=== PATIENT | male | born 1975 | race Caucasian/White ===

== ENCOUNTER 2017-02-10 00:28 | Inpatient (IN) | payer OTHER ==
[~2017-02-10] VITALS: Ht 182.9 cm; Wt 142.9 kg
[2017-02-10] VITALS (8 sets, daily range): BP systolic 127–184; BP diastolic 57–104
--- NOTE | ~2017-02-10 | O ---
[facility] [place] [address] OPERATIVE REPORT Name: SOTERO CARR WILLIAM Room #: 419-P ADM IN M.R.#: [id number] Admission: 02/10/17 Attend Phys: Emile Rojas MD Discharge: Date of : 71 Report #: [id number] THIS REPORT FOR: //name// CC: [facility] physician/PCP Kellie Wilks DATE OF SERVICE: 02/10/2017 PREOPERATIVE DIAGNOSIS: Left large scrotal abscess. POSTOPERATIVE DIAGNOSIS: Left large scrotal abscess. SURGEON: Elie Wilks MD DINING CAR WAITER/WAITRESS: None. ANESTHESIA: General. FLUIDS: Please see anesthesia notes. BLOOD LOSS: 10 mL. COMPLICATIONS: None. POSTPROCEDURE STATUS: Stable. SPECIMEN: 1. Abscess culture. 2. Necrotic skin. SURGERIES: 1. Scrotal exploration with incision and drainage of a large scrotal abscess. 2. Debridement of gangrenous tissue. 3. Arriola catheter placement. FINDINGS: 1. The patient had a large, greater than 10 cm multiloculated in a left-sided scrotal abscess with a large amount of induration as well as gangrenous type tissue. 2. No obvious testicular involvement or urethral involvement. OPERATITE NOTE IN DETAIL: After informed consent, the patient was brought to the operating room, was placed in supine position. He was prepped and draped in sterile fashion, was given general endotracheal anesthesia as well as preoperative antibiotics. Arriola catheter was placed sterilely on the field. [facility] [address] [place] [address] OPERATIVE REPORT Name: SOTERO CARR WILLIAM Room #: 419-P [facility] IN M.R.#: [id number] Admission: 02/10/17 Attend Phys: Emile Rojas MD Discharge: Date of : 71 Report #: [id number] The bladder was drained, yellow urine was noted with no difficulty placing the Arriola catheter. Under exam, there were no obvious signs of infection involving the urethra or suprapubic area. On exam, the patient is already draining large left-sided scrotal abscess, on CT scan he had quite a large amount of air. He is a poorly controlled diabetic with a blood sugar of over 600 upon admission at [facility], he was taken to the operating room emergently for drainage. An incision was made from the top of the scrotum down to the left side, almost to the perineal region. There is a mild amount of necrotic skin over the scrotum that was excised and removed. Immediately upon entering the scrotal cavity, a large amount of pus and infection was removed. Cultures were taken. Debridement was performed extensively. No obvious sign of involvement of the testicle was noted. Once all debridement was noted, we got back tissue that bled appropriately. We elected to place a [place] drain in the dependent portion down through the perineum. This was sewn in place with a 2-0 suture. Once the Teresa was securely in place, we then packed with wet to dry dressings, impregnated with some Betadine. The patient was then awoken and transferred to recovery room in stable condition. All counts were correct. There were no complications. The patient tolerated the procedure well. <ELECTRONICALLY SIGNED> By: Elie Wliks MD 02/10/17 1135 [id number] 1017 Elie Wilks MD /nt
--- NOTE | ~2017-02-10 | HC ---
[facility] [place] [address] CONSULTATION Name: SOTERO CARR Room #: 419-P ADM IN M.R.#: [id number] Admission: 02/10/17 Attend Phys: Emile Rojas MD Discharge: Date of : 71 Report #: [id number] THIS REPORT FOR: //name// CC: [facility] physician/PCP Emile Wilks DATE OF SERVICE: 02/11/2017 PERSONAL PHYSICIAN: Dr. Rojas. CHIEF COMPLAINT: Scrotal wound, status post I and D of scrotal abscess. HISTORY OF PRESENT ILLNESS: This is a 41-year-old white male who had approximately 5-day history of a boil on his left scrotal region that became progressively more tender and enlarged which prompted him to come to the emergency department for evaluation and the patient was taken to the operating room and had I and D of the scrotal abscess. The patient now has surgical packing within the wound itself. We have been asked to assist in the care of this patient. The patient denies fevers, chills. The patient states that the pain is much improved now status post surgery, but is gray tender to touch. PAST MEDICAL HISTORY: Significant for diabetes, which is poorly controlled. The patient states he has not taken any insulin for approximately 4 years since he has lost his insurance. History of MRSA diskitis approximately several years ago. Chronic kidney disease and hypertension, both of which also untreated. PAST SURGICAL HISTORY: Significant for cholecystectomy in 2010. DRUG ALLERGIES: DAPTOMYCIN. CURRENT MEDICATIONS: Include minocycline, clonidine, aspirin, insulin, amlodipine. The only one he has actively taken was minocycline. SOCIAL HISTORY: The patient does not smoke or drink alcohol, works as a assistant director of security. FAMILY HISTORY: Not pertinent to current medical condition. REVIEW OF SYSTEMS: CONSTITUTIONAL: The patient denies fevers or chills. NEUROLOGIC: The patient has overall generalized weakness, but no isolated weakness in arms or legs. EYES: No complaints. ENT: No complaints. CARDIAC: The patient denies chest pain, palpitations, peripheral edema. [facility] [address] [address] CONSULTATION Name: SOTERO CARR [place] Room #: 419-P [facility] IN M.R.#: [id number] Admission: 02/10/17 Attend Phys: Emile Rojas MD Discharge: Date of : 71 Report #: [id number] RESPIRATORY: The patient denies shortness of breath, cough, wheezes. GASTROINTESTINAL: The patient denies nausea, vomiting, abdominal pain. GENITOURINARY: The patient complains of pain in his left scrotal region where surgical wound is located. MUSCULOSKELETAL: No complaints. SKIN: There is a surgical wound to the left scrotum. PHYSICAL EXAMINATION: VITAL SIGNS: Stable. The patient is afebrile. GENERAL: He is alert and oriented x 3, obese white male who is absolutely in no distress. HEENT: Normocephalic, atraumatic. Mucous membranes are moist. Pupils are round. Sclerae are white. NECK: Supple, nontender. BACK: Nontender. LUNGS: Clear. HEART: Regular, without murmur. ABDOMEN: Soft, nontender, without organomegaly. EXTREMITIES: The patient moves all extremities without difficulty. Bilateral heels are intact. GENITOURINARY: Evaluation of the scrotum reveals it to be slightly enlarged. There is a surgical wound to the left side which is clean, dry and granulating. There is no active bleeding noted. There is serosanguineous drainage noted on the gauze which has no odor. There are no signs of any progressive fluctuance or cellulitis. There is no tunneling, tracking or undermining. There is no perineal tenderness or fluctuance. The penis is without signs of induration or swelling. Periwound itself is somewhat tender, but without erythema, warmth or cellulitis. NEUROLOGIC: Cranial nerves 2-12 are grossly intact. Motor and sensory are grossly intact. LABORATORY VALUES: White count 11.9, hemoglobin 12.9, glucose this morning was 285, albumin is 2.5. IMPRESSION: 1. Left scrotal wound, status post I and D of scrotal abscess. 2. Diabetes mellitus type 2, poorly controlled. 3. Hypertension, poorly controlled. 4. Protein-calorie malnutrition -- severe with albumin of 2.5. 5. Generalized debility. PLAN: At this time, we will start Dakin's packing, moist gauze into the scrotal wound and plan for the patient to start Silvadene cream upon discharge on a moist gauze and pack this twice daily into the scrotal region. Given the fact the patient does not have insurance, the patient requested the Silvadene, not the which is more expensive. The patient states he thinks he can do the [facility] [address] [place] [address] CONSULTATION Name: SOTERO CARR Room #: 419-P [facility] IN M.R.#: [id number] Admission: 02/10/17 Attend Phys: Emile Rojas MD Discharge: Date of : 71 Report #: [id number] dressing changes on his own upon discharge. Continue IV antibiotics at this point in time per infectious disease. We encouraged the patient to maximize his oral protein supplementation for healing. I have requested the patient follow up in my office in the next 10-14 days. By: 1400 1343 Glen Moya MD /marine
--- NOTE | ~2017-02-10 | S ---
[facility] [place] [address] SURGICAL PATH RPT PROCEDURE Name: SOTERO CARR Room #: 419-P DIS IN M.R.#: [id number] Admission: 02/10/17 Date of : 71 Discharge: 02/14/17 Report #: [id number] Path Case #: [id number] PATHOLOGY REPORT COLLECTION DATE: 02/10/2017 RECEIVED DATE: 02/10/2017 SUBMITTING PHYS: Dr. Elie Wilks OTHER PHYS: Dr. Kellie Rojas SPECIMEN(S) RECEIVED: A.Scrotal tissue * * * * * * * * * * * * FINAL DIAGNOSIS: Scrotal tissue, debridement: - Fibroadipose connective tissue with abundant acute and chronic inflammation, necrosis, granulation tissue, and degenerative cells with adjacent necrotic soft tissue. - Skin and subcutaneous tissue with acute and chronic inflammation, necrosis, granulation tissue, fat necrosis, and pseudoepitheliomatous hyperplasia. COMMENT: Due to the extensive necrosis and degenerated cells, properly controlled immunohistochemical stains are performed. (Block A1) AE1/AE3: non-reactive in the degenerated cells CD20: non-reactive in the degenerated cells CD3: non-reactive in the degenerated cells Clinical correlation is recommended. The H and E stained slide is co-reviewed with Dr. Kesha Rubio. (NICKW:; d/t: 02/14/17) PATHOLOGIST: Lelia Rooney M.D. REPORT ELECTRONICALLY SIGNED BY: Lelia Rooney M.D. DATE/TIME: 02/15/2017 14:51 * * * * * * * * * * * * GROSS PATHOLOGY: The specimen is received in formalin, labeled "carlos Johnsonotal tissue." Received are multiple segments of espana-baez, necrotic-appearing soft tissue with attached pink-baez skin measuring 7.3 x 5.8 x 2.0 cm in aggregate dimensions. The specimen is submitted representatively in cassette A1. (KAH; 02/11/2017) [address] [place] [address] SURGICAL PATH RPT PROCEDURE Name: SOTERO CARR Room #: 419-P [facility] IN M.R.#: [id number] Admission: 02/10/17 Date of : 71 Discharge: 02/14/17 Report #: [id number] Path Case #: [id number] CLINICAL HISTORY: Scrotal abscess INITIAL CPT CODE(S): A; 09017, 41912, 68996, 55316 Professional services performed by [facility] at [address] , [place] [address] Technical services performed by [facility] at [address] [place] [address], [facility] [address] [address]. [facility] [address] [place] [address] PHONE: [phone] DIRECTOR: Tristen Oconnell M.D. * * * END OF REPORT * * *
--- NOTE | ~2017-02-10 | H ---
[facility] [place] [address] HISTORY AND PHYSICAL Name: SOTERO CARR Room #: 419-P ADM IN M.R.#: [id number] Admission: 02/10/17 Attend Phys: Emiel Rojas MD Discharge: Date of : 71 Report #: [id number] THIS REPORT FOR: //name// CC: [facility] physician/PCP Kellie Wilks DATE OF SERVICE: 02/10/2017 DATE OF SERVICE: 02/10/2017 REASON FOR CONSULTATION: Scrotal abscess. HISTORY OF PRESENT ILLNESS: The patient is a 41-year-old morbidly obese diabetic white male, who presented to the Emergency Room at [place] with a 5-6 day history of what he thought was a boil on his left testicle. He tried poking this area and had some mild drainage. He denies any history of fever or chills. He does state that he had MRSA in his back in the past here at [facility] and stayed in the hospital for close to [address] scan done in the Emergency Room shows air and gas in the scrotum. No obvious signs of tracking or Salima's; however, the abscess pocket is closed to 10 cm in size. PAST MEDICAL HISTORY: Significant for: 1. Diabetes, poorly controlled on insulin. 2. History of MRSA diskitis. 3. Chronic kidney disease. 4. High blood pressure. PAST SURGICAL HISTORY: Significant for a laparoscopic cholecystectomy in 08/2011. ALLERGIES: DAPTOMYCIN. MEDICATIONS: 1. Minocycline. 2. Clonidine. 3. Aspirin. 4. Insulin. 5. Amlodipine. SOCIAL HISTORY: The patient denies tobacco, alcohol or drug use. PHYSICAL EXAMINATION: VITAL SIGNS: Currently, temperature of 98.3, pulse 112, respirations 20, blood pressure 165/83. GENERAL: The patient is awake, alert, oriented, in no acute distress. He is a [facility] [place] [address] HISTORY AND PHYSICAL Name: SOTERO CARR Room #: 419[facility] IN [facility].#: [id number] Admission: 02/10/17 Attend Phys: Emile Rojas MD Discharge: Date of : 71 Report #: [id number] morbidly obese 41-year-old white male. EXTREMITIES: No clubbing, cyanosis or edema. ABDOMEN: Morbidly obese, soft, nontender, nondistended. GENITOURINARY: Remarkable for a circumcised penis that is somewhat retracted. He has diffuse scrotal swelling on the left side with several ____ looking areas. He has got an small open draining area anteriorly; however, there is a large palpated loculation. I do not palpate any crepitus. He does have erythema around the skin on the left side with a purulent looking large area on the left side and is tender. The right scrotum looks uninvolved. The penis looks uninvolved. The suprapubic area and perineum look uninvolved. LABORATORY DATA: Sodium is 130, potassium 4.6, chloride 94, CO2 30, BUN 11, creatinine 1.5, glucose is grossly elevated at 540. AST is 11, alkaline phosphatase 146, ALT is 16. Lactic acid is 1.6. Urinalysis is remarkable for 2+ blood, no bacteria are seen. CBC is remarkable for a white count of 13.2, hemoglobin of 15.9, hematocrit of 44.5, platelets of 416. CT scan tentatively comes back from the Emergency Room showing a 6 x 4 x 10 cm left-sided scrotal abscess containing air. No obvious signs of Salima's gangrene. IMPRESSION: The patient is a 41-year-old morbidly obese white male diabetic with a left-sided large scrotal abscess. I have discussed this case today at length with the patient, described with his diabetes and the air on the CT scan. This is a surgical emergency. We will plan on taking him to the operating room emergently for I and D of a scrotal abscess. It does not appear that he has Salima's. However, we will plan on doing anything indicated in the operating room including a large debridement placing a Arriola catheter ____ performing cystoscopy. The patient understands all the risks of the procedure and all potential complications. We will proceed as needed with his consent. Plan on keeping him in the hospital for wound care as well as waiting on wound cultures to come back to convert to oral antibiotics in the future. For the time being, we will cover him with broad spectrum antibiotics. He will be admitted to the medicine service for medical care and control of his diabetes as well. <ELECTRONICALLY SIGNED> By: Elie Wilks MD 02/10/17 1135 0554 0728 Elie Wilks MD /nt
--- NOTE | ~2017-02-10 | HC ---
[facility] [place] [address] CONSULTATION Name: SOTERO CARR Room #: 419-P ADM IN M.R.#: [id number] Admission: 02/10/17 Attend Phys: Emile Rojas MD Discharge: Date of : 71 Report #: [id number] THIS REPORT FOR: //name// CC: [facility] physician/PCP Emile Wilks REASON FOR CONSULTATION: I was asked to evaluate concerning scrotal abscess. HISTORY OF PRESENT ILLNESS: The patient was a 41-year-old with underlying history of diabetes and hypertension. He presents with a 4-day history of increased left scrotal pain. His blood sugars have been high. No definite fever or chills. The pain worsened and he was having difficulty urinating, so he presented to the emergency room. CT scan showed left scrotal abscess with scrotal wall thickening, bilateral hydroceles. He had a Arriola catheter placed and he was taken to the operative room today for incision and drainage. I have not seen the formal operative report, but there was some concern about Salima gangrene. ALLERGIES: DAPTOMYCIN with rhabdomyolysis. MEDICATIONS: As noted on his NOV. He was given vancomycin and Zosyn from the emergency room. PAST MEDICAL HISTORY: Significant for diabetes. He has had L5-S1 MRSA diskitis in 2010, daptomycin caused rhabdomyolysis. He had acute renal failure related to this. He has underlying gastroparesis. He has had laparoscopic cholecystectomy, hypertension. FAMILY HISTORY: Noncontributory. SOCIAL HISTORY: Nonsmoker, no significant alcohol intake, previous recreational drug use. REVIEW OF SYSTEMS: No cardiopulmonary, GI issues. He had no other skin lesions. He has had no activity such as pond or martínez water exposure, hot tubs or swimming pools. No current sexual activity. PHYSICAL EXAMINATION: VITAL SIGNS: Afebrile, hemodynamically stable. GENERAL: He was alert and cooperative, back from the operation room. He had peripheral IV in place. Moderately obese. HEENT: Unremarkable. NECK: Supple. LUNGS: Clear to auscultation. HEART: Regular, without murmur. ABDOMEN: Obese, soft, nontender, no hepatosplenomegaly or mass. [facility] [address] [place] [address] CONSULTATION Name: SOTERO CARR WILLIAM Room #: 419-P [facility] IN [facility].#: [id number] Admission: 02/10/17 Attend Phys: Emile Rojas MD Discharge: Date of : 71 Report #: [id number] GENITOURINARY: External genitalia was remarkable for surgical dressing involving the incision over the left scrotum. He had an indwelling Arriola catheter. Groin was mildly erythematous in the suprapubic region. Perineum was minimally tender. There was no fluctuant there. Perianal examination unremarkable. LABORATORY STUDIES: Sodium 130, potassium 4.6, bicarbonate 30, creatinine 1.5, blood glucose initially was 540, alkaline phosphatase 146. Liver function tests normal. Lactate 1.6. CPK 69. Hemoglobin 15.9, 13.2, with 81% segs, 10% lymphs, platelet count 416,000. Urinalysis had glucose and protein with no active sediment. Cultures from the scrotum are pending. Blood cultures are pending. Chest x-ray was clear. CT scan as noted above. IMPRESSION: A 41-year-old diabetic with scrotal abscess. I would suspect polymicrobial organisms. He has renal insufficiency, likely due to his diabetes. PLAN: Recommend continuing broad antibiotic coverage pending culture results. We will adjust his antibiotics to his renal failure. <ELECTRONICALLY SIGNED> By: Kareem Moore MD 02/11/17 0943 1142 1803 Kareem Moore MD /nt
[~2017-02-10 00:28] MED LIST: ASA5UEC PO; CARAFATE 1 GM TA1 G1 PO; CATAPRES-TTS 20.2 M1; CATAPRES-TTS 20.2 MG TRANSDERM; COLACE100 MG PO; GLIPIZIDE ER10 MG PO; GLUCOPHAGE1000 MG PO; KAPVAY0.1 MG PO; LEVEMIR SC; LISINOPRIL20 MG PO; MINOCYCLINE HC100 M2 PO; NORCO 5-325 TA1 EACH PO; NORVASC 5 MG TAB5 MG PO; NOVOLOG100 UNIT/1 SUBQ; ONDANSETRON ODT4 MG PO; PROTONIX40 M2 PO; REGLAN 10 MG TA10 MG PO; TRANSDERM-SCO1 PATC1; UNK BP MED; VANCOMYCIN1.25 GM/25 IV; ZOFRAN ODT4 MG PO
[2017-02-10 01:58] LABS: URINE BILIRUBIN NEGATIVE (Negative); URINE BLOOD 2+ (Negative); URINE COLOR YELLOW; URINE GLUCOSE-RANDOM* 3+ (Negative); URINE KETONES NEGATIVE (Negative); URINE LEUKOCYTES-REFLEX NEGATIVE (Negative); URINE PROTEIN (DIPSTICK) 2+ (Negative)
[2017-02-10 01:59] LABS: ABSOLUTE NEUTROPHILS 10.7 thou/uL (1.4-8.2); BASOPHILS 0.5 % (0.0-2.0); EOSINOPHILS 0.6 % (0.0-3.0); HEMATOCRIT 44.5 % (42.0-52.0); HEMOGLOBIN 15.9 gm/dL (14.0-18.0); LYMPHOCYTES 10.8 % (24.0-44.0); MCH 31.2 pg (26.0-34.0); MCHC 35.6 g/dL (28.0-37.0); MCV 87.5 fL (80.0-100.0); MONOCYTES 6.8 % (1.0-8.0); PLATELET COUNT 416 thou/uL (150-400); POLYS 81.3 % (36.0-66.0); RBC 5.08 mil/uL (4.50-6.00); RDW 12.7 % (10.5-14.5); WBC 13.2 thou/uL (4.0-11.0)
[2017-02-10 02:01] LABS: MANUAL DIFF NO
[2017-02-10 02:04] LABS: CASTS None Seen /LPF (None Seen); CRYSTALS None Seen /LPF (None Seen); SQUAMOUS None Seen /LPF (0-3); URINE RBC 0-2 Rare /HPF (0-2); URINE WBC-REFLEX None Seen /HPF (0-5)
[2017-02-10 02:22] LABS: ALBUMIN 2.5 g/dL (3.4-5.0); CALCIUM 8.8 mg/dL (8.5-10.1); CREATININE 1.5 mg/dL (0.7-1.3); POTASSIUM 4.6 mmol/L (3.5-5.1); TOTAL BILIRUBIN 0.4 mg/dL (<0.1-1.0); TOTAL PROTEIN 7.4 g/dL (6.4-8.2)
[2017-02-11 03:14] LABS: GLYCOHEMOGLOBIN (HGB A1C) 12.2 % (4.8-5.6)
[2017-02-11 04:09] VITALS: BP 132/65
[2017-02-11 04:36] LABS: HEMATOCRIT 37.4 % (42.0-52.0); MCH 30.1 pg (26.0-34.0); MCHC 34.6 g/dL (28.0-37.0); MCV 87.1 fL (80.0-100.0); RBC 4.3 mil/uL (4.50-6.00); RDW 12.5 % (10.5-14.5); WBC 11.9 thou/uL (4.0-11.0)
[2017-02-11 04:41] LABS: CALCIUM 7.7 mg/dL (8.5-10.1); CREATININE 1.3 mg/dL (0.7-1.3); MAGNESIUM 1.8 mg/dL (1.8-2.4); POTASSIUM 4.1 mmol/L (3.5-5.1)
[2017-02-11 04:47] LABS: HEMOGLOBIN 12.9 gm/dL (14.0-18.0)
[2017-02-11 08:00] VITALS: BP 145/79
[2017-02-11 16:00] VITALS: BP 133/83
[2017-02-11 20:00] VITALS: BP 121/73
[2017-02-12 03:55] LABS: CREATININE 1.2 mg/dL (0.7-1.3)
[2017-02-12 04:00] VITALS: BP 153/94
[2017-02-12 04:12] LABS: HEMATOCRIT 37.8 % (42.0-52.0); HEMOGLOBIN 13.2 gm/dL (14.0-18.0); MCH 30.8 pg (26.0-34.0); RBC 4.3 mil/uL (4.50-6.00); RDW 12.4 % (10.5-14.5); WBC 9.6 thou/uL (4.0-11.0)
[2017-02-12 07:13] VITALS: BP 192/109
[2017-02-12 09:31] VITALS: BP 179/100
[2017-02-12 15:32] VITALS: BP 194/100
[2017-02-12 16:52] VITALS: BP 152/92
[2017-02-12 20:00] VITALS: BP 154/84
[2017-02-13 04:30] VITALS: BP 155/82
[2017-02-13 04:44] LABS: HEMATOCRIT 40.1 % (42.0-52.0); HEMOGLOBIN 13.9 gm/dL (14.0-18.0); MCH 30.2 pg (26.0-34.0); MCHC 34.5 g/dL (28.0-37.0); MCV 87.4 fL (80.0-100.0); RBC 4.59 mil/uL (4.50-6.00); RDW 12.5 % (10.5-14.5); WBC 8.4 thou/uL (4.0-11.0)
[2017-02-13 04:52] LABS: CALCIUM 8.4 mg/dL (8.5-10.1); CREATININE 1.2 mg/dL (0.7-1.3); POTASSIUM 3.7 mmol/L (3.5-5.1)
[2017-02-13 07:31] VITALS: BP 178/89
[2017-02-13 14:42] LABS: URINE BILIRUBIN NEGATIVE (Negative); URINE BLOOD 2+ (Negative); URINE COLOR YELLOW; URINE GLUCOSE-RANDOM* 2+ (Negative); URINE KETONES NEGATIVE (Negative); URINE LEUKOCYTES-REFLEX NEGATIVE (Negative); URINE PROTEIN (DIPSTICK) 2+ (Negative); URINE SPECIFIC GRAVITY >= 1.030 (1.003-1.035)
[2017-02-13 15:03] LABS: CASTS None Seen /LPF (None Seen); SQUAMOUS 0-3 Few /LPF (0-3)
[2017-02-13 15:04] LABS: CRYSTALS None Seen /LPF (None Seen); URINE RBC 3-10 Few /HPF (0-2); URINE WBC-REFLEX 0-5 Rare /HPF (0-5)
[2017-02-13 17:03] VITALS: BP 153/83
[2017-02-13 19:32] VITALS: BP 170/89
[2017-02-13 20:18] VITALS: BP 148/77
[2017-02-14 03:58] VITALS: BP 156/81
[2017-02-14 09:38] VITALS: BP 142/80
[2017-02-14] MEDS ORDERED: QUINU10 PD PO (09:53)
[2017-02-14] MEDS ORDERED: CARVEDILOL3.125 MG PO (09:53)
[2017-02-14] MEDS ORDERED: LANTUS100 UNIT/M SUBQ (09:54)
[2017-02-14] MEDS ORDERED: AUGMENTIN 875875 MG PO (14:18)
[2017-02-14 16:33] VITALS: BP 142/80
[2017-02-14 16:41] VITALS: BP 164/84
== END 2017-02-14 18:11 | disposition home or self-care (01) | DRG 727 ==
LOC: ER 00:28 → 4E 05:25 → EROBS 05:25 → 4E 09:51
PROVIDERS: Emergency Medicine; Family Medicine; Nurse Practitioner; Physician Assistant
PROC: 0T9B70Z Drainage of Bladder with Drainage Device, Via Natural or Artificial Opening (ICD-10-PCS; principal; 2017-02-10)
PROC: 0VB50ZZ Excision of Scrotum, Open Approach (ICD-10-PCS; principal; 2017-02-10)
DX: N49.2 Inflammatory disorders of scrotum (principal); E43 Unspecified severe protein-calorie malnutrition; A48.0 Gas gangrene; Z68.41 Body mass index [BMI] 40.0-44.9, adult; N17.9 Acute kidney failure, unspecified; E87.1 Hypo-osmolality and hyponatremia; N32.89 Other specified disorders of bladder; N43.3 Hydrocele, unspecified; R59.0 Localized enlarged lymph nodes; I12.9 Hypertensive chronic kidney disease with stage 1 through stage 4 chronic kidney disease, or unspecified chronic kidney disease; E11.22 Type 2 diabetes mellitus with diabetic chronic kidney disease; N18.9 Chronic kidney disease, unspecified; B95.1 Streptococcus, group B, as the cause of diseases classified elsewhere; E66.01 Morbid (severe) obesity due to excess calories; M46.47 Discitis, unspecified, lumbosacral region; E11.65 Type 2 diabetes mellitus with hyperglycemia; K21.9 Gastro-esophageal reflux disease without esophagitis; N49.3 Fournier gangrene; R31.9 Hematuria, unspecified; D72.829 Elevated white blood cell count, unspecified; Z79.4 Long term (current) use of insulin; Z88.1 Allergy status to other antibiotic agents; Z79.899 Other long term (current) drug therapy; Z86.14 Personal history of Methicillin resistant Staphylococcus aureus infection; Z90.49 Acquired absence of other specified parts of digestive tract; Z83.3 Family history of diabetes mellitus
CPT/HCPCS: 10084; 50010; 50101; 50386; 50403; 56524; 62110; 62900; 70005